=== PATIENT | female | born 1945 | race Caucasian/White ===

== ENCOUNTER 2016-08-16 05:51 | Day surgery (SDC) | payer MEDICARE ==
[~2016-08-16 05:51] MED LIST: IV START KIT ONE; LACTATED RINGERS 1,000 ML ONE
[2016-08-16 06:59] LABS: HEMATOCRIT 39.5 % (37.0-47.0); HEMOGLOBIN 13.2 gm/l (12.0-16.0)
[2016-08-16] MEDS ORDERED: LIDOCAINE 0.5% (PRES FREE) 50 ML VIAL ONE (07:03)
[2016-08-16] MEDS ORDERED: SODIUM BICARBONATE 4.2% VIAL 5 ML ONE (07:06)
[2016-08-16] MEDS ORDERED: LIDOCAINE 1%/EPI (MULTI DOSE) 20 ML VIAL ONE (07:06)
[2016-08-16 07:20] LABS: CALCIUM 10.9 mg/dL (8.6-10.3)
[2016-08-16] MEDS ORDERED: MENTHOL/CETYLPYRD 1 EACH LOZENGE PO PRN (08:11)
[2016-08-16] MEDS ORDERED: ONDANSETRON 4 MG/2ML 2 ML VIAL IV PRN (08:11)
[2016-08-16] MEDS ORDERED: BLISTEX LIPSTICK 1 EACH TP PRN (08:11)
[2016-08-16] MEDS ORDERED: ACETAMINOPHEN 650 MG SUP PR PRN (08:11)
[2016-08-16] MEDS ORDERED: OXYCODONE/ACETAMINOPHEN 5/325 MG TABLET PO PRN (08:11)
[2016-08-16] MEDS ORDERED: MORPHINE SULFATE 2 MG/ML SYRINGE IV PRN (08:11)
[2016-08-16] MEDS ORDERED: OXYCODONE HCL 5 MG TABLET ONE (08:38)
[2016-08-16] MEDS ORDERED: OXYCODONE HCL 5 MG TABLET PO PRN (08:43)
--- NOTE | 2016-08-16 09:56 | OP ---
Nicky Shah : 1945 DATE OF SURGERY: 08/16/2016 PROCEDURE: Right carpal tunnel release. PREOPERATIVE DIAGNOSIS: Right carpal tunnel syndrome. POSTOPERATIVE DIAGNOSIS: Right carpal tunnel syndrome. SURGEON: Matheus Tapia M.D. ANESTHESIA: Local, lidocaine with epinephrine and bicarb 3 mL. FINDINGS AND PROCEDURE: After preoperative consult and questions answered to patient's satisfaction she was prepped and draped in the normal sterile fashion. An incision was made in line with the long axis of the ring finger extending from the level of the superficial palmar arch that transfers to the crease of the wrist. The bleeding which was minimal was controlled with cautery. Using the thin retractors the incision was extended with the knife to the transverse carpal ligament and the volar aspect of the ligament was cautiously incised exposing underlying tissues. Using the sharp serrated scissors. This was extended proximally and distally and the operative stinger was inserted proximally to determine adequacy of the release of the small finger and this was found to be adequate. There was minimal bleeding during the procedure. Wound was irrigated and closed with a combination of vertical and simple sutures of 4-0 Nylon with good re-approximation of the skin edges. Xeroform and sterile dressing applied. Following the procedure she was able to demonstrate normal range of motion of the hand musculature. Standard postoperative instructions were given. Patient to the recovery room in stable condition. JOB:[id number]
== END 2016-08-16 09:03 | disposition home or self-care (01) ==
LOC: SDC 05:51
PROVIDERS: ATTEND Family Medicine
PROC: 01N50ZZ Release Median Nerve, Open Approach (ICD-10-PCS; principal; 2016-08-16)
DX: G56.01 Carpal tunnel syndrome, right upper limb (principal); E11.43 Type 2 diabetes mellitus with diabetic autonomic (poly)neuropathy; I10 Essential (primary) hypertension